=== PATIENT | male | born 1960 | race Two or more races ===

== ENCOUNTER 2024-11-12 13:02 | Emergency (ER) | payer MEDICARE, SELFPAY ==
--- NOTE | 2024-11-12 13:08 | XR_ITS ---
Examination: AP chest single view Technique one AP portable upright chest single view Date and time: November 12, 2024 1336 hours Indications weakness nausea and lethargy today. FINDINGS: Normal heart size No aspiration pneumonia Prominent osteopenia Reverse right shoulder arthroplasty IMPRESSION: No aspiration pneumonia
--- NOTE | 2024-11-12 13:08 | EKG_ITS ---
[facility] Test Date: 2024-11-12 Pat Name: YONIS MORALES Department: Room: - Gender: Male [employer] Supervisor: : [id number] Requested By: Ann Haile Order Number: [id number] Reading MD: Ann Haile Measurements Intervals [place] Rate: 72 P: 43 VA: 156 QRS: -38 QRSD: 111 T: 28 QT: 375 QTc: 413 Interpretive Statements SINUS RHYTHM LEFT AXIS DEVIATION [QRS AXIS < -30] MODERATE INTRAVENTRICULAR CONDUCTION DELAY [110+ ms QRS DURATION] No previous ECG available for comparison /[id number]/[email or web address]/[id number].pdf
--- NOTE | 2024-11-12 13:12 | EDNOTE_ITS ---
ED General RME/HPI General Chief complaint: Altered Mental Status Stated complaint: AMS Time Seen by Provider: 11/12/24 13:05 Arrival date/time: 11/12/24 13:02 RME / HPI RME / HPI narrative: 64-year-old male patient with significant history of hypertension, brought in by EMS for evaluation regarding lethargy. Apparently patient was outside doing yard work with family, and was noted to be lethargic, nauseous, and having generalized body weakness. Patient was noted to be anhidrotic. According to EMS when the initially evaluated the patient he was having a GCS of 10. Currently patient is having a GCS of 15. Patient denies any chest pain denies any headache denies any abdominal pain. Denies any other complaints. According to the patient he was not drinking enough water while doing yard work today. Related Data Allergies Allergy/AdvReac Type Severity Reaction Status Date / Time No Known Allergies Allergy Verified 11/12/24 13:19 Review of Systems Review of Systems Narrative Review of Systems: Review of system reviewed and within normal limits except mentioned in HPI ED Exam Narrative Physical exam: VITAL SIGNS: Reviewed. GENERAL APPEARANCE: Alert and interactive, follows commands, no acute distress, HEAD AND FACE: Non-traumatic. ENT: PERRL, pink conjunctivitis, eyelid no trauma, Mucous membrane dry NECK: Supple, nontender, no nuchal rigidity. CHEST: No tenderness, no crepitus, no paradoxical movement, no retractions. LUNGS: Clear, well ventilated, symmetric, no rales, no wheezing, no ronchi, no stridor, good breath sounds bilaterally. HEART: Regular rate, regular rhythm, no murmur, no gallops. ABDOMEN: Soft, positive bowel sounds, nondistended, no guarding, nontender, no rebound, no masses, RECTAL: Deferred. GENITAL: Deferred. NEUROLOGICAL: Gross motor function intact sensory function intact, Appropriate for age. MUSCULOSKELETAL: low back nontender, full range of motion. EXTREMITIES: Nontender, full range of motion. SKIN: Color pink, dry, no rash, no lacerations, no abrasions, no contusions. LYMPHATICS: Deferred. Course Quality Measures none Orders Category Date Time Status EKG (ED ONLY) *Do not use* NOW Care 11/12/24 13:09 Completed EKG (ED Only) Stat Exams 11/12/24 13:08 Draft XR chest 1V Stat Exams 11/12/24 13:08 Completed B-Type Natriuretic Peptide Stat Lab 11/12/24 12:25 Completed CBC Stat Lab 11/12/24 12:25 Completed CK [Creatine Kinase] Stat Lab 11/12/24 12:25 Completed Comprehensive Metabolic Panel Stat Lab 11/12/24 12:25 Completed Partial Thromboplastin Time Stat Lab 11/12/24 12:25 Completed Troponin I Stat Lab 11/12/24 12:25 Completed Troponin I Stat Lab 11/12/24 15:00 Completed Urinalysis, C/S if Indicated Stat Lab 11/12/24 15:00 Completed Ringers Lactated 1000 ml [Lactated Ringers] 1,000 ml Med 11/12/24 13:08 Discontinued IV 999 mls/hr Ringers Lactated 1000 ml [Lactated Ringers] 1,000 ml Med 11/12/24 13:08 Discontinued IV 999 mls/hr Vital Signs Vital signs: Vital Signs Temperature 98.9 F 11/12/24 13:17 Pulse Rate 75 11/12/24 13:17 Respiratory Rate 14 11/12/24 13:17 Blood Pressure 123/75 11/12/24 13:17 Pulse Oximetry (%) 96 11/12/24 13:17 Oxygen Delivery Method Room Air 11/12/24 13:17 Discharge Plan Plan Patient Disposition: HOME (Self Care) Discharge Disposition comment: Stable Prescriptions/Referrals Referrals: No Primary/Family,Physician [Primary Care Provider] - In 1 week Problem List Clinical Impression: Heat exhaustion Patient/Caregiver Discharge Instructions Discharge Activity: activity as tolerated Education Materials: ED Heat Exhaustion Additional Instructions: Thank you for the opportunity for serving you today. You are stable for d ischarged . You are advised to: Follow-up with your PCP in 1 to 2 days Return to ED for worsening of symptoms Increase oral fluids Stay indoors for the next [address] Print Language: Kazakh Stand Alone Forms: Yolanda Award Info., Patient Portal Info Letter PA/PROSPER Supervising Physician DALE/PROSPER Supervising Physician: MD Javier MDM Narrative MDM hospital course: 64-year-old male patient with significant history of hypertension, brought in by EMS for evaluation regarding lethargy. Apparently patient was outside doing yard work with family, and was noted to be lethargic, nauseous, and having generalized body weakness. Patient was noted to be anhidrotic. According to EMS when the initially evaluated the patient he was having a GCS of 10. Currently patient is having a GCS of 15. Patient denies any chest pain denies any headache denies any abdominal pain. Denies any other complaints. According to the patient he was not drinking enough water while doing yard work today. EKG as interpreted by me showed sinus rhythm, ventricular rate of 72 bpm, no ST segment elevation or depression noted.. Initial troponin was noted to be 0.079, after 2 hours, repeat troponin went down to 0.073. Patient is not having any chest pain. Prior to discharge patient told me that he is back to baseline, no nausea no vomiting alert oriented x 4, and stable vital signs. Clinical Information Provided by patient and EMS Medical Records Reviewed None Meds/Rx Considered, not Ordered None Describe details: None Labs/Rad/Tests considered, not Ordered Describe details: See results [facility] Chronic Illness/Social Conditions Add or document further as needed: Hypertension Lab Interpretation Lab(s) interpretation(s): See results [facility] Imaging Imaging interpretation: none Medication Administration(s) Medication Administration History Discontinued Medications Lactated Ringer's (Lactated Ringers) 1,000 mls @ 999 mls/hr IV .Q1H1M ONE Stop: 11/12/24 14:08 Last Infusion: 11/12/24 14:54 Dose: Infused Documented By: Admin: 11/12/24 13:41 Dose: 999 mls/hr Documented By: Lactated Ringer's (Lactated Ringers) 1,000 mls @ 999 mls/hr IV .Q1H1M ONE Stop: 11/12/24 14:08 Last Infusion: 11/12/24 14:54 Dose: Infused Documented By: Admin: 11/12/24 13:43 Dose: 999 mls/hr Documented By: IV fluids 2 L Diagnosis Differential diagnosis: Anhidrotic heat exhaustion, dehydration, heatstroke Most likely dx, and/or detailed dx discussion: Heat exhaustion Dispositon Disposition: Discharge Home
[2024-11-12 13:17] VITALS: BP 123/75; PULSE 75; RESP 14; TEMP 37.2; O2SAT 96
[2024-11-12 13:20] VITALS: PULSE 76; RESP 16; O2SAT 90; BMI 31.4
[2024-11-12 13:35] LABS: Basophils # (Auto) 0.1 Thou/mm3 (0.0-0.2); Basophils % (Auto) 1 % (0-2.5); Eosinophils # (Auto) 0.1 Thou/mm3 (0.0-0.5); Eosinophils % (Auto) 1 % (0-10); Hematocrit 43.6 % (41.0-53.0); Hemoglobin 15.6 g/dL (13.5-16.0); Immature Granulocytes Auto 0.02 Thou/mm3 (0.00-0.00); Lymphocytes # (Auto) 1.1 Thou/mm3 (1.0-4.8); Lymphocytes % (Auto) 11 % (10-50); Mean Corpuscular HGB Conc 35.8 g/dl (31.0-37.0); Mean Corpuscular Hemoglobin 31.3 pg (25.0-35.0); Mean Corpuscular Volume 87 fL (80-100); Monocytes # (Auto) 0.6 Thou/mm3 (0.0-0.8); Monocytes % (Auto) 6 % (0-12); Neutrophils # (Auto) 7.9 Thou/mm3 (1.8-7.7); Neutrophils % (Auto) 81 % (37-80); Nucleated Red Blood Cell # 0.00 Thou/mm3 (0.00-0.00); Nucleated Red Blood Cell % 0 /100 WBC (0); Platelet Count 239 Thou/mm3 (140-440); RDW Standard Deviation 43.8 fL (35.1-43.9); Red Blood Count 4.99 Miln/mm3 (4.50-5.90); White Blood Count 9.7 Thou/mm3 (3.8-10.6)
[2024-11-12] MEDS: RINGERS LACTATED 1000 ML 1,000 ML 999 ML IV ×2 (13:41→13:43)
[2024-11-12 13:49] LABS: Partial Thromboplastin Time 24.7 Seconds (22.0-36.0)
[2024-11-12 14:06] LABS: B-Type Natriuretic Peptide < 20 pg/mL (0-100)
[2024-11-12 14:12] LABS: Alanine Aminotransferase 39 U/L (10-49); Albumin, Serum 4.6 gm/dL (3.4-4.8); Albumin/Globulin Ratio 1.5 (1.2-2.2); Alkaline Phosphatase 94 U/L (46-116); Anion Gap 12 (7-16); Aspartate Amino Transferase 37 U/L (0-34); BUN/Creatinine Ratio 8 Ratio (12-20); Bilirubin,Total 1.0 mg/dL (0.3-1.2); Blood Urea Nitrogen 14 mg/dL (9-23); Calcium 10.2 mg/dL (8.3-10.6); Calcium (Corrected) 10.2 mg/dL (8.5-10.1); Carbon Dioxide 25.8 mMol/L (20.0-31.0); Chloride 102 mMol/L (98-107); Creatine Kinase 229 U/L (34-171); Creatinine (Component) 1.8 mg/dL (0.6-1.3); Estimated Creatinine Clearance 49.7 mL/min (>60); Globulin 3.1 gm/dL (2.3-3.5); Glucose 127 mg/dL (74-106); Osmolality,Calculated 281 (275-295); Potassium 4.4 mMol/L (3.4-5.1); Sodium 140 mMol/L (136-145); Total Protein 7.7 gm/dL (5.7-8.2); eGFR 42 See Note
[2024-11-12 14:13] LABS: Troponin I 0.079 ng/mL (0.0-0.045)
[2024-11-12 14:14] VITALS: BP 108/82; PULSE 68; RESP 18; TEMP 36.4; O2SAT 97
[2024-11-12 15:22] LABS: Collection Type, Urine Clean Catch; Squamous Epithelial Cell,Urine 0 /hpf (0-5)
[2024-11-12 15:29] LABS: Bilirubin,Urine Negative (Negative); Blood,Urine Negative (Negative); Clarity,Urine Clear (Clear/Hazy); Color,Urine Lt-Yellow (Lt Yel-Yel); Culture Indicated,Urine Not Indicated; Glucose, Urine Negative (Negative); Hyaline Casts,Urine < 1 /hpf (0-1); Ketones,Urine Negative (Negative); Leukocyte Esterase,Urine Negative (Negative); Nitrite,Urine Negative (Negative); PH,Urine 6.5 (5.0-7.0); Protein,Urine Negative (Neg - Trace); RBC,Urine 1 /hpf (0-3); Specific Gravity,Urine 1.011 (1.001-1.035); Urobilinogen,Urine Negative mg/dL (0.0-1.0); WBC,Urine 1 /hpf (0-5)
[2024-11-12 15:35] VITALS: BP 144/82; PULSE 68; RESP 15; O2SAT 98
[2024-11-12 16:07] LABS: Troponin I 0.073 ng/mL (0.0-0.045)
[2024-11-12 16:11] VITALS: BP 144/83; PULSE 80; RESP 15; TEMP 36.5; O2SAT 94
== END 2024-11-12 16:29 | disposition home or self-care (01) ==
PROVIDERS: Nurse Practitioner Family; Emergency Provider Family Medicine
DX: T67.5XXA Heat exhaustion, unspecified, initial encounter (principal); X58.XXXA Exposure to other specified factors, initial encounter
CPT/HCPCS: 36415; 71045; 80053; 81001; 82550; 83880; 84484; 85025; 85730; 93005; 96360; 99284; J7120